=== PATIENT | female | born 1995 ===

== ENCOUNTER → 2022-07-12 13:52 | Outpatient (ROUT) | payer OTHER, SELFPAY ==
[2022-07-12 15:02] LABS: COVID-19 CEPHEID PCR (VTM/NP) Negative (Negative)
== END ==
PROVIDERS: PCP Student in an Organized Health Care Education/Training Program; Visit Provider Otolaryngology
DX: Z20.822 Contact with and (suspected) exposure to COVID-19 (principal)
CPT/HCPCS: U0003; U0005

== ENCOUNTER 2022-07-14 11:50 | Day surgery (SDC) | payer OTHER, SELFPAY ==
[2022-07-12 15:14] VITALS: BMI 35.2
[2022-07-14 12:36] VITALS: BP 107/68; PULSE 66; RESP 16; TEMP 36.4; O2SAT 100; BMI 35.2
[2022-07-14] MEDS: LACTATED RINGERS 1,000 ML 42 ML IV (12:36)
[2022-07-14] MEDS: ACETAMINOPHEN 325 MG TABLET 975 MG PO (12:53)
--- NOTE | 2022-07-14 13:26 | P.OP_ITS ---
Operative Date/Time/Diagnoses Date of procedure: 07/14/22 Time of procedure: 14:28 Pre-op diagnosis: Chronic tonsillitis, throat pain, upper airway obstruction secondary to tonsillar hypertrophy Post-op diagnosis: same (Mild adenoid hypertrophy) Procedure & Clinicians Procedure: Tonsillectomy and adenoidectomy Same procedure as scheduled: Yes Indications: 27-year-old female with the above diagnoses incompletely managed with medical therapy presents for the above procedure. Following discussion of the material risks benefits complications and alternatives, she elected to proceed. Surgeon: Ludin Flores Click Yes if Unassisted: Yes Anesthesia Type: General and Local Operative Notes Findings: Intact palate, single uvula, 3+ tonsils with scarring and inflammation, 2+ adenoids Estimated Blood Loss (mL): 15 Procedure in detail: Following identification and confirmation of consent the patient was brought to the operating room suite and placed in the supine position. General endotracheal anesthesia was administered. A head wrap, shoulder roll, and mouth gag were placed and a red rubber catheter was inserted through the nostril and out the mouth to retract the soft palate. Partially obstructive adenoid tissue was ablated with suction electrocautery on a setting of 40, without injury to the eustachian tube orifices or choana. The left tonsil was retracted medially and suction electrocautery on a setting of 30 was used to dissect the tonsil in a subcapsular plane, followed by hemostasis with the same. This process was repeated on the right side with identical findings. The tonsillar fossae were superficially infiltrated bilaterally with 2% lidocaine 1 100,000 epinephrine. Mouth gag and rubber abraham ter were removed and the patient was extubated in the operating room and taken to the recovery room in stable condition without known complication. Complications: none Post-operative Condition: stable Disposition: same day surgery Plan for aftercare: Push fluids, alternate Tylenol and Advil every 3 hours for baseline pain control, oxycodone for breakthrough pain. Soft diet 2 full weeks, no heavy lifting or straining 2 weeks.
--- NOTE | 2022-07-14 13:26 | PM.PREOP ---
Pre-operative Note Interval Note History & Physical reviewed/Exam performed by Physician: Yes Changes to H&P: No
--- NOTE | 2022-07-14 13:59 | SUR.OPER ---
Supine on padded OR bed, head on pillow, arms secured on padded arm boards at <90 degrees abduction, legs uncrossed, safety belt at thigh, tape over blanket over lower legs.
[2022-07-14] MEDS: LIDOCAINE 2% W/EPI INJ 20 ML INJ (14:05)
[2022-07-14 14:32] VITALS: BP 111/71; PULSE 89; RESP 14; TEMP 36.3; O2SAT 99
[2022-07-14 14:40] VITALS: BP 114/71; PULSE 87; RESP 19; O2SAT 100
[2022-07-14 14:45] VITALS: BP 118/72; PULSE 69; RESP 15; O2SAT 98
[2022-07-14 14:50] VITALS: BP 122/79; PULSE 67; RESP 15; O2SAT 99
[2022-07-14] MEDS: OXYCODONE IR 5 MG TABLET PO (15:28)
[2022-07-14 16:00] VITALS: BP 119/86; PULSE 50; RESP 12; O2SAT 100
== END 2022-07-14 16:14 | disposition home or self-care (01) ==
PROVIDERS: PCP Student in an Organized Health Care Education/Training Program; Referring Provider Otolaryngology; Visit Provider Otolaryngology
PROC: (CPT 42821; principal; 2022-07-14 13:30)
DX: J35.01 Chronic tonsillitis (principal); J98.8 Other specified respiratory disorders; E04.9 Nontoxic goiter, unspecified
CPT/HCPCS: 42821; 81025; J0330; J1100; J2250; J2405; J2704; J3010

== ENCOUNTER → 2025-06-30 16:09 | Outpatient (CLI) | payer OTHER, SELFPAY ==
[2025-06-30 18:39] LABS: Urine N gonorrhoeae NOT DETECTED
[2025-06-30 18:48] LABS: Urine Chlamydia NOT DETECTED
== END ==
PROVIDERS: PCP Student in an Organized Health Care Education/Training Program; Visit Provider Obstetrics & Gynecology
DX: Z11.3 Encounter for screening for infections with a predominantly sexual mode of transmission (principal); O09.899 Supervision of other high risk pregnancies, unspecified trimester
CPT/HCPCS: 87086; 87491; 87591

== ENCOUNTER → 2025-06-30 17:02 | Outpatient (CLI) | payer OTHER, SELFPAY | PROVIDERS: PCP Student in an Organized Health Care Education/Training Program; Referring Provider Obstetrics & Gynecology; Visit Provider Obstetrics & Gynecology | DX: O09.899 Supervision of other high risk pregnancies, unspecified trimester (principal) | CPT/HCPCS: 36415; 86850; 86900; 86901; 87086; 87491; 87591 ==